=== PATIENT | male | born 1945 | race Caucasian/White ===

== ENCOUNTER → 2017-07-26 | Day surgery (SDC) | payer MEDICARE, OTHER ==
[2017-07-24 12:28] LABS: BASOPHILS # (AUTO) 0.1 (0.0-0.1); BASOPHILS % 1.1 % (0.0-1.0); EOSINOPHILS # (AUTO) 0.2 (0.0-0.4); EOSINOPHILS % 2.9 % (0.0-6.0); HEMATOCRIT 40.6 % (38.2-49.6); HEMOGLOBIN 13.5 g/dL (14.0-18.0); LYMPHOCYTES # (AUTO) 1.9 (1.0-3.2); LYMPHOCYTES % 35.6 % (18.0-39.1); MEAN CORPUSCULAR HEMOGLOBIN 31.5 pg (28-32); MEAN CORPUSCULAR HGB CONC 33.3 g/dL (31-35); MEAN CORPUSCULAR VOLUME 94.6 fL (81-99); MONOCYTES # (AUTO) 0.7 (0.2-0.8); MONOCYTES % 12.1 % (4.4-11.3); NEUTROPHILS # (AUTO) 2.6 (2.1-6.9); NEUTROPHILS % 47.9 % (38.7-80.0); PLATELET COUNT 60 x10e3/uL (140-360); RED BLOOD COUNT 4.29 x10e6/uL (4.3-5.7); RED CELL DISTRIBUTION WIDTH 14.6 % (11.7-14.4)
--- NOTE | 2017-07-24 12:49 | Diagnostic Imaging Report ---
PROCEDURE: Frontal and lateral views of the chest. COMPARISON: None. INDICATIONS: PRE OP FINDINGS: Lines/tubes: None. Lungs: The lungs are well inflated and clear. There is no evidence of pneumonia or pulmonary edema. Pleura: There is no pleural effusion or pneumothorax. Heart and mediastinum: The heart and the mediastinum are normal. Bones: No acute bony abnormality. Left axillary surgical clips. A surgical clip projects over the left lower lobe, which is in the soft tissues of the lower back on lateral view. IMPRESSION: 1. No acute cardiopulmonary disease. Dictated by: Koko uQiroz M.D. on 07/24/2017 at 12:58 Electronically approved by: Koko Quiroz M.D. on 07/24/2017 at 12:58
[~2017-07-26] MED LIST: ASPIR 8181 MG PO; BELLADONNA/OPIUM 60 MG SUPP PR ONE; CEFTRIAXONE SOD 1 GM VIAL ONE; DEXAMETHASONE SOD PHOS INJ 4 MG/ML VIAL ONE; EPHEDRINE SULFATE INJ 50 MG/10 ML SYR ONE; FENTANYL CITRATE/PF 100MCG/2 ML INJ ONE; GENTAMICIN 80MG/NS 100 ML 200 ML IV ONE; IOPAMIDOL 610MG/1ML 300 MG/ML VIAL IV ONE; LIDOCAINE HCL 2% LOCAL INJ 5 ML SDV VIAL INJ ONE; MIDAZOLAM HCL 2 MG/2 ML VIAL ONE; ONDANSETRON HCL INJ 2 MG/ML VIAL ONE; PROPOFOL IV EMULSION 10 MG/ML 20 ML VIAL ONE; SEVOFLURANE INHAL SOLN 250 ML PEN BTL ONE; ZYRTEC10 M3 PO
--- NOTE | 2017-09-12 03:58 | Operative Report ---
DATE OF PROCEDURE: July 26, 2017 PREOPERATIVE DIAGNOSES 1. Obstructive BPH. 2. Incomplete bladder emptying. POSTOPERATIVE DIAGNOSES 1. Obstructive BPH. 2. Incomplete bladder emptying. OPERATIONS PERFORMED 1. Cystourethroscopy with bilateral ureteral catheterization and retrograde ureteropyelography (separate procedure performed for the incomplete bladder emptying). 2. Interpretation of retrograde ureteropyelography. 3. Cystourethroscopy with transurethral implantation of 4 UroLift implants (separate procedure performed for the obstructive BPH). ANESTHESIA: General. COMPLICATIONS: None. CLINICAL SUMMARY: Navin Wallace is a 72-year-old man with obstructive BPH. The patient has failed Flomax and Rapaflo due to side effects. Having failed medical therapy and having had persistent symptomatology, he elected to proceed with UroLift implantation. Patient is aware of the risks of bleeding, infection, injury to adjacent structures, potential for failure, potential need for additional procedures, and he elected to proceed. OPERATIVE PROCEDURE IN DETAIL: Informed consent was verified. Navin Wallace was properly identified, taken to the operating room, placed on the cystoscopy table in supine position. Anesthesia was uneventfully begun. The patient was then carefully and gently repositioned in the dorsal lithotomy position with all pressure points well padded. His genitalia were prepared and draped in the usual sterile fashion. The 22.5-Bahraini cystoscope sheath with the visual obturator in place was atraumatically inserted into the patient's urethra. It was guided down the unremarkable urethra through the normal sphincteric region, through the prostate bed, which was significant for bilobar prostatic hypertrophy with kissing lateral lobes and visual obstruction. No median lobe was noted. Panendoscopy of the urinary bladder revealed grade 2 trabeculations, but no tumors, no stones, and no diverticula. Normally positioned and configured ureteral orifices were identified. An 8-B[place]raini catheter was used to cannulate each ureter and retrograde ureteropyelograms were performed. Interpretation of retrograde ureteropyelography: Contrast was injected in retrograde fashion bilaterally. There were no tumors, no stones, and no diverticula. Unobstructed drainage was observed bilaterally fluoroscopically. There was medial deviation in the pelvis of the right ureter which seemed to be persistent. There were also some radiopacities on the right-hand side away from the urinary tract. The bladder was drained. The cystoscope was withdrawn. A 20-B[place]raini cystoscope for the UroLift was introduced atraumatically with a visual obturator. We then placed 4 UroLift implants. We placed them anterolaterally on either side. Two were placed 1.5 cm distal to the bladder neck and 2 were placed on either side at the level of the verumontanum. This resulted in a continuous anterior channel that was open. The bladder was drained, the cystoscope was withdrawn, and the patient was uneventfully reversed from anesthesia and taken to the recovery room in stable condition. There were no complications of the procedure. He tolerated the procedure well. Explicit postop instructions were given. We will follow the patient up in the office at which point in time we will plan on performing uroflowmetry and bladder ultrasonography. Job#: [id number] JULIO CÉSAR
== END | disposition home or self-care (01) ==
LOC: OR 06:29
PROVIDERS: ATTEND Urology
DX: N40.1 Benign prostatic hyperplasia with lower urinary tract symptoms (principal); N13.8 Other obstructive and reflux uropathy; R39.14 Feeling of incomplete bladder emptying; N32.89 Other specified disorders of bladder; H91.90 Unspecified hearing loss, unspecified ear; Z01.812 Encounter for preprocedural laboratory examination; Z01.818 Encounter for other preprocedural examination; Z79.82 Long term (current) use of aspirin
CPT/HCPCS: 52005; C9740; 36415; 71046; 74420; 85025; 93005; J0696; J1100; J1580; J2001; J2250; J2405